=== PATIENT | female | born 1965 | race Caucasian/White ===

== ENCOUNTER → 2017-05-13 | Outpatient (CLI) | payer BC ==
[2014-02-09 12:45] VITALS: BP 119/59
[~2017-05-13] MED LIST: ESOM40CA PO; NORG1TAB7 PO
--- NOTE | 2017-05-13 14:18 | RAD ---
DATE: 05/13/2017 EXAM: MAMMO ARAMIS SCREENING BILATERAL Bilateral digital screening mammography to include digital breast tomosynthesis (3D mammography) HISTORY: Screening study. COMPARISON: 05/08/2016 This study was interpreted with the benefit of Computerized Aided Detection (CAD). The breast parenchyma is heterogeneously dense, which could reduce sensitivity of mammography. Breast parenchyma level C. FINDINGS: Digital MLO and CC mammograms of both breasts were obtained. Additionally digital breast tomosynthesis (3D mammography) images of both breasts in the MLO and CC projections were performed. Comparison study is dated 05/08/2016. The breast parenchyma is heterogeneously dense which can obscure a lesion on mammography (breast density code C). No spiculated mass is seen. No malignant appearing calcification or area of architectural distortion is noted. Benign-appearing calcifications are seen within both breasts, unchanged. Digital breast tomosynthesis images demonstrate no spiculated mass or malignant appearing calcification. Since the previous examination there has been no significant interval change. IMPRESSION: BI-RADS Category 1, negative, there is no mammographic evidence of malignancy. Routine yearly screening mammography is recommended for follow-up. BI-RADS CATEGORY: 1 NEGATIVE RECOMMENDED FOLLOW-UP: 12M 12 MONTH FOLLOW-UP PQRS compliance statement: Patient information was entered into a reminder system with a target due date 05/13/2018 for the next mammogram. Mammography is a sensitive method for finding small breast cancers, but it does not detect them all and is not a substitute for careful clinical examination. A negative mammogram does not negate a clinically suspicious finding and should not result in delay in biopsying a clinically suspicious abnormality. "Our facility is accredited by the [employer] Mammography [employer]."
== END | disposition home or self-care (01) ==
LOC: MAMMO 12:37
PROVIDERS: ATTEND Specialist
DX: Z12.31 Encounter for screening mammogram for malignant neoplasm of breast (principal)
CPT/HCPCS: 77063; G0202; 77067

== ENCOUNTER → 2018-05-16 | Outpatient (CLI) | payer BC ==
[2014-02-09 12:45] VITALS: BP 119/59
--- NOTE | 2018-05-16 10:51 | RAD ---
DATE: 05/16/2018 EXAM: MAMMO ARAMIS SCREENING BILATERAL HISTORY: Routine screening COMPARISON: 05/13/2017 This study was interpreted with the benefit of Computerized Aided Detection (CAD). Breast Density: HETERO The breast parenchyma is heterogenously dense, which could reduce sensitivity of mammography. Breast parenchyma level C. FINDINGS: 2-D and 3-D tomosynthesis imaging was performed in CC and MLO projections. There is an unchanged small lobulated lymph node type density in the lateral aspect of the left breast. No spiculated mass or architectural distortion is seen. Benign type calcifications are present. No suspicious microcalcifications have developed. IMPRESSION: Stable mammograms without evidence of malignancy. BI-RADS CATEGORY: 2 BENIGN FINDING(S) RECOMMENDED FOLLOW-UP: 12M 12 MONTH FOLLOW-UP PQRS compliance statement: Patient information was entered into a reminder system with a target due date for the next mammogram. Mammography is a sensitive method for finding small breast cancers, but it does not detect them all and is not a substitute for careful clinical examination. A negative mammogram does not negate a clinically suspicious finding and should not result in delay in biopsying a clinically suspicious abnormality. "Our facility is accredited by the [employer] Mammography [employer]."
== END | disposition home or self-care (01) ==
LOC: MAMMO 08:37
PROVIDERS: ATTEND Specialist
DX: Z12.31 Encounter for screening mammogram for malignant neoplasm of breast (principal)
CPT/HCPCS: 77063; 77067

== ENCOUNTER → 2019-01-13 | Outpatient (CLI) | payer BC ==
[2014-02-09 12:45] VITALS: BP 119/59
--- NOTE | 2019-01-13 14:38 | RAD ---
Indication: Palpable right breast lump. TECHNIQUE: Limited right breast ultrasound region of palpable lump. COMPARISON: Same day diagnostic mammogram. FINDINGS: In the region of probable lump at 11:00 position possibly 6.5 cm from the nipple there is an oval-shaped hypoechoic mass with obscured margins approximately measuring 0.7 x 0.9 x 0.5 cm. There is no posterior shadowing. The lesion is wider than taller. Trace central vascularity seen. IMPRESSION: Hypoechoic mass in the region of palpable lump. BI-RADS 4: Suspicious. Ultrasound guided biopsy recommended. Electronically signed by: Jeremy Camacho DO (01/13/2019 2:36 PM) [facility]
--- NOTE | 2019-01-13 16:11 | RAD ---
Indication: Palpable right breast lump. TECHNIQUE: Limited right breast ultrasound region of palpable lump. COMPARISON: Same day diagnostic mammogram. FINDINGS: In the region of probable lump at 11:00 position possibly 6.5 cm from the nipple there is an oval-shaped hypoechoic mass with obscured margins approximately measuring 0.7 x 0.9 x 0.5 cm. There is no posterior shadowing. The lesion is wider than taller. Trace central vascularity seen. IMPRESSION: Hypoechoic mass in the region of palpable lump. BI-RADS 4: Suspicious. Ultrasound guided biopsy recommended. Electronically signed by: Jeremy Camacho DO (01/13/2019 4:08 PM) [facility]
== END | disposition home or self-care (01) ==
LOC: MAMMO 13:44
PROVIDERS: ATTEND Physician Assistant
DX: N63.11 Unspecified lump in the right breast, upper outer quadrant (principal)
CPT/HCPCS: 76641; 77065; G0279; 77061

== ENCOUNTER → 2019-05-18 | Outpatient (CLI) | payer BC ==
[2014-02-09 12:45] VITALS: BP 119/59
--- NOTE | 2019-05-18 16:40 | RAD ---
DATE: 05/18/2019. EXAM: MAMMO ARAMIS SCREENING BILATERAL. HISTORY: Routine mammographic screening. COMPARISON: 01/13/2019. This study was interpreted with the benefit of Computerized Aided Detection (CAD). FINDINGS: Breast Density: DENSE The breast parenchyma is dense, which could reduce the sensitivity of mammography. Breast parenchyma level density D.. There are no suspicious masses, microcalcifications or architectural distortion. Scattered calcifications are benign. A postbiopsy clip is noted superolaterally on the right. An intraparenchymal lymph node superolaterally on the left is stable. The parenchymal pattern is stable. BI-RADS CATEGORY: 2 BENIGN FINDING(S). RECOMMENDED FOLLOW-UP: 12M 12 MONTH FOLLOW-UP. PQRS compliance statement: Patient information was entered into a reminder system with a target due date 05/18/2020 for the next mammogram. Mammography is a sensitive method for finding small breast cancers, but it does not detect them all and is not a substitute for careful clinical examination. A negative mammogram does not negate a clinically suspicious finding and should not result in delay in biopsying a clinically suspicious abnormality. "Our facility is accredited by the [employer] Mammography Program."
== END | disposition home or self-care (01) ==
LOC: MAMMO 11:06
PROVIDERS: ATTEND Physician Assistant
DX: Z12.31 Encounter for screening mammogram for malignant neoplasm of breast (principal); N64.89 Other specified disorders of breast
CPT/HCPCS: 77063; 77067

== ENCOUNTER → 2020-05-20 | Outpatient (CLI) | payer BC ==
[2014-02-09 12:45] VITALS: BP 119/59
--- NOTE | 2020-05-22 16:58 | RAD ---
Examination: Bilateral screening mammogram INDICATION: Screening. COMPARISON: 05/18/2019 and 05/16/2018 bilateral mammograms TECHNIQUE: CC and MLO views of both breasts were obtained with 2-D and 3-D technique and reviewed wit h computer-aided detection. FINDINGS: The breasts are heterogeneously dense. There is no dominant mass, suspicious calcification or architectural distortion. Benign biopsy marker in the posterior upper outer right breast and scattered benign calcifications bi laterally are redemonstrated. IMPRESSION: Benign findings on bilateral mammogram. No evidence of malignancy. BI-RADS Category 2 Benign Recommend return to routine screening next due in one year. Patient entered into a reminder system with targeted due date for next mammogram. Electronically signed by: Justin Knight MD (05/22/2020 4:55 PM) [id number]
== END ==
LOC: MAMMO 10:37
PROVIDERS: ATTEND Physician Assistant
DX: Z12.31 Encounter for screening mammogram for malignant neoplasm of breast (principal); R92.1 Mammographic calcification found on diagnostic imaging of breast
CPT/HCPCS: 77063; 77067